=== PATIENT | male | born 1950 | race Caucasian/White ===

== ENCOUNTER → 2016-06-04 | Outpatient (REF) | payer OTHER ==
[2016-06-04 13:31] LABS: ALBUMIN/GLOBULIN RATIO 1.21 (1.00-1.93); ALKALINE PHOSPHATASE 119 U/L (45-117); ALT/SGPT 26 U/L (12-78); ANION GAP 11 MEQ/L (8-16); AST/SGOT 13 U/L (15-37); BILIRUBIN,TOTAL 0.4 MG/DL (0.2-1.0); BLOOD UREA NITROGEN 11 MG/DL (7-18); CALCIUM LEVEL 9.1 MG/DL (8.8-10.2); CARBON DIOXIDE LEVEL 25 MEQ/L (21-32); CHLORIDE LEVEL 107 MEQ/L (98-107); CHOLESTEROL LEVEL 192 MG/DL (<200); CREATININE FOR GFR 0.96 MG/DL (0.70-1.30); GLOMERULAR FILTRATION RATE > 60.0 (>49); GLUCOSE, FASTING 121 MG/DL (80-110); POTASSIUM SERUM 3.8 MEQ/L (3.5-5.1); SODIUM LEVEL 143 MEQ/L (136-145); TOTAL PROTEIN 7.3 GM/DL (6.4-8.2); TRIGLYCERIDES LEVEL 66 MG/DL (<150)
[2016-06-06 00:06] LABS: %CD3+CD4+CD8+ 2.8 % (Not Estab.); %CD3+CD4+CD8- 38.3 % (Not Estab.); %CD3+CD4-CD8+ 29.4 % (Not Estab.); %CD3+CD4-CD8- 0.6 % (Not Estab.); ABS CD3+CD4+CD8+ 48 /uL (Not Estab.); ABS CD3+CD4+CD8- 651 /uL (Not Estab.); ABS CD3+CD4-CD8+ 500 /uL (Not Estab.); ABS CD3+CD4-CD8- 10 /uL (Not Estab.); Eosinophils 2 % (.); HCT 45.8 % (37.5-51.0); HGB 15.3 g/dL (12.6-17.7); Monocytes 7 % (.); Neutrophils 65 % (.); WBC 6.6 x10E3/uL (3.4-10.8)
== END ==
LOC: M SFHCPLAZ 11:55
PROVIDERS: ATTEND Internal Medicine Infectious Disease
DX: B20 Human immunodeficiency virus [HIV] disease (principal); Z11.3 Encounter for screening for infections with a predominantly sexual mode of transmission; I10 Essential (primary) hypertension; E29.1 Testicular hypofunction; B18.1 Chronic viral hepatitis B without delta-agent; R85.619 Unspecified abnormal cytological findings in specimens from anus

== ENCOUNTER → 2016-08-12 | Outpatient (REF) | payer OTHER ==
[2016-08-12 12:34] LABS: BASO % 0.7 % (0.0-1.0); EOS # 0.2 K/mm3 (0.0-0.50); EOS % 2.1 % (0.0-3.0); LARGE UNSTAINED CELL # 0.3 K/mm3 (0.0-0.4); LARGE UNSTAINED CELL % 3.5 % (0.0-4.0); LYMPH # 1.9 K/mm3 (1.5-4.5); LYMPH % 20.3 % (24.0-44.0); MEAN CORPUSCULAR HEMOGLOBIN 32.4 pg (27.0-33.0); MEAN CORPUSCULAR HGB CONC 33.4 g/dl (32.0-36.5); MONO # 0.4 K/mm3 (0.0-0.8); MONO % 5.7 % (0.0-5.0); NEUTROPHILS # 5.3 K/mm3 (1.8-7.7); NEUTROPHILS % 67.7 % (36.0-66.0); PLATELET COUNT, AUTOMATED 182 k/mm3 (150-450); RED CELL DISTRIBUTION WIDTH 12.4 % (11.5-14.5); WHITE BLOOD COUNT 7.8 K/mm3 (4.0-10.0)
[2016-08-12 12:56] LABS: ANION GAP 8 MEQ/L (8-16); BLOOD UREA NITROGEN 17 MG/DL (7-18); CALCIUM LEVEL 10.1 MG/DL (8.8-10.2); CARBON DIOXIDE LEVEL 30 MEQ/L (21-32); CHLORIDE LEVEL 101 MEQ/L (98-107); CREATININE FOR GFR 0.94 MG/DL (0.70-1.30); GLOMERULAR FILTRATION RATE > 60.0 (>49); GLUCOSE, FASTING 94 MG/DL (80-110); POTASSIUM SERUM 4.7 MEQ/L (3.5-5.1); SODIUM LEVEL 139 MEQ/L (136-145)
[2016-08-15 14:19] LABS: HLA B5701-1 Negative (.)
== END ==
LOC: M SFHCPLAZ 11:01
PROVIDERS: ATTEND Internal Medicine Infectious Disease
DX: R60.0 Localized edema (principal); B20 Human immunodeficiency virus [HIV] disease

== ENCOUNTER → 2017-01-20 | Outpatient (REF) | payer OTHER ==
[2017-01-20 16:29] LABS: BASO % 0.7 % (0.0-1.0); EOS # 0.2 K/mm3 (0.0-0.50); EOS % 2.8 % (0.0-3.0); LARGE UNSTAINED CELL # 0.2 K/mm3 (0.0-0.4); LARGE UNSTAINED CELL % 3.4 % (0.0-4.0); LYMPH # 1.8 K/mm3 (1.5-4.5); LYMPH % 25.1 % (24.0-44.0); MEAN CORPUSCULAR HEMOGLOBIN 32.8 pg (27.0-33.0); MEAN CORPUSCULAR HGB CONC 33.4 g/dl (32.0-36.5); MEAN CORPUSCULAR VOLUME 98.3 fl (80.0-96.0); MONO # 0.4 K/mm3 (0.0-0.8); MONO % 6.7 % (0.0-5.0); NEUTROPHILS # 3.8 K/mm3 (1.8-7.7); NEUTROPHILS % 61.4 % (36.0-66.0); PLATELET COUNT, AUTOMATED 183 k/mm3 (150-450); RED CELL DISTRIBUTION WIDTH 12.8 % (11.5-14.5); WHITE BLOOD COUNT 6.2 K/mm3 (4.0-10.0)
[2017-01-20 16:47] LABS: ALBUMIN 3.9 GM/DL (3.2-5.2); ALBUMIN/GLOBULIN RATIO 1.15 (1.00-1.93); BILIRUBIN,DIRECT 0.1 MG/DL (0.0-0.2); BILIRUBIN,TOTAL 0.5 MG/DL (0.2-1.0); TOTAL PROTEIN 7.3 GM/DL (6.4-8.2)
== END ==
LOC: M SFHCPLAZ 13:04
PROVIDERS: ATTEND Internal Medicine Infectious Disease
DX: R10.11 Right upper quadrant pain (principal)

== ENCOUNTER → 2017-01-22 | Outpatient (CLI) | payer OTHER ==
--- NOTE | 2017-01-23 00:05 | REP ---
Clinical: Right upper quadrant pain. Technique: Real time gamez scale ultrasound examination using curved array transducer. Comparison: 12/05/2015. Findings: Visualized portions of the liver are normal although somewhat limited in evaluation due to interposed bowel gas and technical factors. 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 The pancreas is incompletely evaluated due to interposed bowel gas. The gallbladder is normal and without gallstones, wall thickening, or pericholecystic fluid. Common bile duct is upper limits of normal at 7 mm diameter without evidence for intrahepatic biliary ductal dilatation. Right kidney demonstrates renovascular calcifications and measures 10.6 x 6.6 x 6.5 cm without hydronephrosis or obvious mass lesion. No ascites. Impression: Chronic findings as described above. Somewhat limited evaluation due to technical factors. Signed by Keith Strong MD 01/22/2017 11:56 P
== END ==
LOC: M RAD 09:00
PROVIDERS: ATTEND Internal Medicine Infectious Disease
DX: R10.11 Right upper quadrant pain (principal)

== ENCOUNTER → 2017-06-02 | Outpatient (REF) | payer OTHER ==
[2017-06-02 16:17] LABS: INR 0.94; PROTHROMBIN TIME 12.6 SECONDS (12.4-14.5)
[2017-06-02 16:36] LABS: ALBUMIN/GLOBULIN RATIO 1.14 (1.00-1.93); ALKALINE PHOSPHATASE 109 U/L (45-117); ALT/SGPT 28 U/L (12-78); ANION GAP 5 MEQ/L (8-16); AST/SGOT 16 U/L (7-37); BILIRUBIN,TOTAL 0.3 MG/DL (0.2-1.0); BLOOD UREA NITROGEN 12 MG/DL (7-18); CALCIUM LEVEL 9.2 MG/DL (8.8-10.2); CARBON DIOXIDE LEVEL 31 MEQ/L (21-32); CHLORIDE LEVEL 105 MEQ/L (98-107); CREATININE FOR GFR 0.89 MG/DL (0.70-1.30); GLOMERULAR FILTRATION RATE > 60.0 (>49); GLUCOSE, FASTING 120 MG/DL (80-110); MAGNESIUM LEVEL 2.4 MG/DL (1.8-2.4); POTASSIUM SERUM 4.1 MEQ/L (3.5-5.1); PSA SCREENING 0.56 NG/ML (< 4.0); SODIUM LEVEL 141 MEQ/L (136-145); TOTAL PROTEIN 7.5 GM/DL (6.4-8.2)
[2017-06-02 16:38] LABS: TOTAL 25(OH) VITAMIN D 40.7 NG/ML (30.0-100.0)
[2017-06-03 07:16] LABS: ALPHA FETOPROTEIN TUMOR QUANT 2.4 NG/ML (<8.1)
[2017-06-05 14:20] LABS: % CD8 Pos Lymph 30.8 % (12.0-35.5); %CD4 Pos Lymphs 43.6 % (30.8-58.5); ABS Basophils 0.1 x10E3/uL (0.0-0.2); ABS Eosinophils 0.2 x10E3/uL (0.0-0.4); ABS Monocytes 0.7 x10E3/uL (0.1-0.9); ABS Neutophils 3.7 x10E3/uL (1.4-7.0); Abs CD4 Helper 872 /uL (359-1519); Abs CD8 Suppres 616 /uL (109-897); CD4/CD8 Ratio 1.42 (0.92-3.72); Eosinophils 3 % (Not Estab.); HCT 47.5 % (37.5-51.0); HGB 15.7 g/dL (13.0-17.7); HIV-1 RNA PCR QUANT 2 LC550285 <20 copies/mL (.); Immature Grans 0 % (Not Estab.); Lyme Disease IgG/IgM Antibodie <0.91 ISR (0.00-0.90); Lyme Disease IgM Ab Quantitati <0.80 index (0.00-0.79); Lymphocytes 30 % (Not Estab.); MCH 31.9 pg (26.6-33.0); MCHC 33.1 g/dL (31.5-35.7); MCV 97 fL (79-97); Monocytes 10 % (Not Estab.); Neutrophils 56 % (Not Estab.); Platelets 197 x10E3/uL (150-379); RBC 4.92 x10E6/uL (4.14-5.80); RDW 13.7 % (12.3-15.4); WBC 6.6 x10E3/uL (3.4-10.8)
== END ==
LOC: M SFHCPLAZ 13:20
DX: B20 Human immunodeficiency virus [HIV] disease (principal); R21 Rash and other nonspecific skin eruption; E29.1 Testicular hypofunction; Z12.5 Encounter for screening for malignant neoplasm of prostate; B18.1 Chronic viral hepatitis B without delta-agent

== ENCOUNTER → 2018-04-13 | Outpatient (REF) | payer OTHER ==
[2018-04-13 15:19] LABS: ESTIMATED AVERAGE GLUCOSE 117 MG/DL (60-110); HEMOGLOBIN A1c 5.7 %
[2018-04-13 15:22] LABS: ANION GAP 7 MEQ/L (8-16); BLOOD UREA NITROGEN 21 MG/DL (7-18); CALCIUM LEVEL 9.1 MG/DL (8.8-10.2); CARBON DIOXIDE LEVEL 28 MEQ/L (21-32); CHLORIDE LEVEL 105 MEQ/L (98-107); CREATININE FOR GFR 0.96 MG/DL (0.70-1.30); GLOMERULAR FILTRATION RATE > 60.0 (>49); GLUCOSE, FASTING 113 MG/DL (70-100); POTASSIUM SERUM 4.3 MEQ/L (3.5-5.1); SODIUM LEVEL 140 MEQ/L (136-145)
[2018-04-17 14:10] LABS: % CD8 Pos Lymph 30.4 % (12.0-35.5); %CD4 Pos Lymphs 44.2 % (30.8-58.5); ABS Basophils 0.1 x10E3/uL (0.0-0.2); ABS Eosinophils 0.2 x10E3/uL (0.0-0.4); ABS Lymphs 2.2 x10E3/uL (0.7-3.1); ABS Monocytes 0.9 x10E3/uL (0.1-0.9); ABS Neutophils 3.7 x10E3/uL (1.4-7.0); Abs CD4 Helper 972 /uL (359-1519); Abs CD8 Suppres 669 /uL (109-897); CD4/CD8 Ratio 1.45 (0.92-3.72); Eosinophils 3 % (Not Estab.); HCT 43.6 % (37.5-51.0); HGB 15.4 g/dL (13.0-17.7); HIV-1 RNA PCR QUANT 2 LC550285 <20 copies/mL (.); Immature Grans 0 % (Not Estab.); Lymphocytes 32 % (Not Estab.); MCH 33.3 pg (26.6-33.0); MCHC 35.3 g/dL (31.5-35.7); MCV 94 fL (79-97); Monocytes 12 % (Not Estab.); Neutrophils 52 % (Not Estab.); Platelets 193 x10E3/uL (150-379); RBC 4.63 x10E6/uL (4.14-5.80); RDW 13.4 % (12.3-15.4)
== END ==
LOC: M SFHCPLAZ 14:20
DX: B20 Human immunodeficiency virus [HIV] disease (principal); R73.9 Hyperglycemia, unspecified
CPT/HCPCS: 83036

== ENCOUNTER → 2018-05-15 | Outpatient (CLI) | payer MEDICARE, OTHER ==
--- NOTE | 2018-05-15 17:31 | REP ---
Clinical: Chronic hepatitis B Technique: Ratliff scale ultrasound using curved array transducer. Findings: The liver and pancreas are normal in contour, size, and echogenicity without focal hepatic or pancreatic lesions identified. The gallbladder is normal without gallstones, wall thickening or pericholecystic fluid. No biliary ductal dilatation is appreciated, and the common bile duct measures 7.0 mm diameter. The right kidney is normal in reniform shape without hydronephrosis and measures 10.8 x 5.7 x 5.7 cm. No ascites. Visualized portions of the abdominal aorta normal. Impression: Normal right upper quadrant abdominal ultrasound. Electronically Signed by Keith Strong MD 05/15/2018 05:22 P
== END ==
LOC: M RAD 12:48
PROVIDERS: ATTEND Internal Medicine Infectious Disease
DX: B18.1 Chronic viral hepatitis B without delta-agent (principal)

== ENCOUNTER → 2018-10-26 | Outpatient (REF) | payer OTHER ==
[2018-10-26 15:28] LABS: APPEARANCE, URINE CLEAR (CLEAR); BACTERIA, URINE AUTO NEGATIVE (NEGATIVE); BILIRUBIN, URINE AUTO NEGATIVE (NEGATIVE); BLOOD, URINE BLOOD NEGATIVE (NEGATIVE); COLOR, URINE YELLOW (YELLOW); GLUCOSE, URINE (UA) AUTO NEGATIVE (NEGATIVE); KETONE, URINE AUTO NEGATIVE (NEGATIVE); LEUKOCYTE ESTERASE, URINE AUTO NEGATIVE (NEGATIVE); NITRITE, URINE AUTO NEGATIVE (NEGATIVE); PROTEIN, URINE AUTO NEGATIVE (NEGATIVE); RBC, URINE AUTO 0 /HPF (0-3); SPECIFIC GRAVITY URINE AUTO 1.013 (1.002-1.035); SQUAMOUS EPITHELIAL CELL UR AU 0 /HPF (0-6); UROBILINOGEN, URINE AUTO 0.2 mg/dL (0.0-2.0); WBC, URINE AUTO 0 /HPF (0-3)
[2018-10-26 15:32] LABS: ALBUMIN 3.7 GM/DL (3.2-5.2); ALT/SGPT 31 U/L (12-78); BILIRUBIN,TOTAL 0.4 MG/DL (0.2-1.0); BLOOD UREA NITROGEN 18 MG/DL (7-18); CALCIUM LEVEL 9.1 MG/DL (8.8-10.2); CARBON DIOXIDE LEVEL 30 MEQ/L (21-32); CHLORIDE LEVEL 107 MEQ/L (98-107); CREATININE FOR GFR 0.95 MG/DL (0.70-1.30); GLOMERULAR FILTRATION RATE > 60.0 (>49); GLUCOSE, FASTING 104 MG/DL (70-100); POTASSIUM SERUM 4.2 MEQ/L (3.5-5.1); SODIUM LEVEL 144 MEQ/L (136-145); TOTAL PROTEIN 7.3 GM/DL (6.4-8.2)
[2018-10-26 16:15] LABS: PROTHROMBIN TIME 13.3 SECONDS (12.1-14.4)
[2018-10-29 00:09] LABS: % CD8 Pos Lymph 31.9 % (12.0-35.5); ABS Eosinophils 0.2 x10E3/uL (0.0-0.4); ABS Monocytes 0.7 x10E3/uL (0.1-0.9); ABS Neutophils 3.1 x10E3/uL (1.4-7.0); Abs CD4 Helper 860 /uL (359-1519); Abs CD8 Suppres 638 /uL (109-897); CD4/CD8 Ratio 1.35 (0.92-3.72); Eosinophils 4 % (Not Estab.); HBV HBV DNA not detected IU/mL (.); HCT 43.5 % (37.5-51.0); HGB 14.7 g/dL (13.0-17.7); HIV-1 RNA PCR QUANT 2 LC550285 <20 copies/mL (.); Immature Grans 0 % (Not Estab.); Lymphocytes 33 % (Not Estab.); MCHC 33.8 g/dL (31.5-35.7); MCV 95 fL (79-97); Monocytes 12 % (Not Estab.); Neutrophils 50 % (Not Estab.); Platelets 187 x10E3/uL (150-450); RDW 13.3 % (12.3-15.4)
== END ==
LOC: M SFHCPLAZ 14:36
PROVIDERS: ATTEND Internal Medicine Infectious Disease
DX: B18.1 Chronic viral hepatitis B without delta-agent (principal); B20 Human immunodeficiency virus [HIV] disease; Z12.5 Encounter for screening for malignant neoplasm of prostate
CPT/HCPCS: 80053; 81001; 82105; 85610; 86360; 87517; 87536; G0103

== ENCOUNTER → 2019-02-23 | Outpatient (REF) | payer OTHER ==
[2019-02-23 17:11] LABS: BASO # 0.1 10^3/uL (0.0-0.2); BASO % 0.8 % (0.0-1.0); EOS # 0.2 10^3/uL (0.0-0.5); EOS % 2.7 % (0.0-3.0); HEMATOCRIT 49.3 % (42.0-52.0); HEMOGLOBIN 16.4 g/dl (13.5-17.5); LYMPH # 1.7 10^3/uL (1.5-5.0); LYMPH % 23.7 % (24.0-44.0); MEAN CORPUSCULAR HEMOGLOBIN 32.3 pg (27.0-33.0); MEAN CORPUSCULAR HGB CONC 33.3 g/dl (32.0-36.5); MEAN CORPUSCULAR VOLUME 97.2 fl (80.0-96.0); MONO # 0.7 10^3/uL (0.0-0.8); MONO % 8.8 % (0.0-5.0); NEUTROPHILS # 4.7 10^3/uL (1.5-8.5); NEUTROPHILS % 63.5 % (36.0-66.0); PLATELET COUNT, AUTOMATED 199 10^3/uL (150-450); RED BLOOD COUNT 5.07 10^6/uL (4.30-6.10); WHITE BLOOD COUNT 7.4 10^3/uL (4.0-10.0)
[2019-02-23 17:41] LABS: ALBUMIN 3.9 GM/DL (3.2-5.2); ALT/SGPT 24 U/L (12-78); BILIRUBIN,TOTAL 0.7 MG/DL (0.2-1.0); BLOOD UREA NITROGEN 11 MG/DL (7-18); CALCIUM LEVEL 9.2 MG/DL (8.8-10.2); CARBON DIOXIDE LEVEL 28 MEQ/L (21-32); CHLORIDE LEVEL 106 MEQ/L (98-107); CREATININE FOR GFR 0.88 MG/DL (0.70-1.30); FREE T4 1.13 NG/DL (0.76-1.46); GLOMERULAR FILTRATION RATE > 60.0 (>49); GLUCOSE, FASTING 89 MG/DL (70-100); POTASSIUM SERUM 3.7 MEQ/L (3.5-5.1); SODIUM LEVEL 141 MEQ/L (136-145); TOTAL PROTEIN 7.7 GM/DL (6.4-8.2)
[2019-02-23 17:43] LABS: FOLATE 14.1 NG/ML; VITAMIN B12 LEVEL 370 PG/ML
== END ==
LOC: M SFHCPLAZ 14:06
PROVIDERS: ATTEND Internal Medicine Infectious Disease
DX: R42 Dizziness and giddiness (principal); R51 Headache; R25.1 Tremor, unspecified; B20 Human immunodeficiency virus [HIV] disease

== ENCOUNTER → 2019-08-17 | Outpatient (REF) | payer OTHER ==
[2019-08-17 14:01] LABS: INR 0.99; PROTHROMBIN TIME 12.8 SECONDS (11.8-14.0)
[2019-08-17 14:20] LABS: ALT/SGPT 28 U/L (12-78); BILIRUBIN,TOTAL 0.7 MG/DL (0.2-1.0); BLOOD UREA NITROGEN 17 MG/DL (7-18); CALCIUM LEVEL 9.3 MG/DL (8.8-10.2); CARBON DIOXIDE LEVEL 30 MEQ/L (21-32); CHLORIDE LEVEL 106 MEQ/L (98-107); CHOLESTEROL LEVEL 183 MG/DL (<200); GLOMERULAR FILTRATION RATE > 60.0 (>49); GLUCOSE, FASTING 88 MG/DL (70-100); HDL CHOLESTEROL 57 MG/DL (>40); LDL CHOLESTEROL 113 MG/DL (<100); NON-HDL-C 126 MG/DL; POTASSIUM SERUM 4.2 MEQ/L (3.5-5.1); SODIUM LEVEL 140 MEQ/L (136-145); TOTAL PROTEIN 7.4 GM/DL (6.4-8.2); TRIGLYCERIDES LEVEL 67 MG/DL (<150)
[2019-08-17 15:21] LABS: APPEARANCE, URINE CLEAR (CLEAR); BACTERIA, URINE AUTO NEGATIVE (NEGATIVE); BILIRUBIN, URINE AUTO NEGATIVE (NEGATIVE); BLOOD, URINE BLOOD NEGATIVE (NEGATIVE); COLOR, URINE YELLOW (YELLOW); GLUCOSE, URINE (UA) AUTO NEGATIVE (NEGATIVE); KETONE, URINE AUTO NEGATIVE (NEGATIVE); LEUKOCYTE ESTERASE, URINE AUTO NEGATIVE (NEGATIVE); MUCUS, URINE SMALL (NEGATIVE); NITRITE, URINE AUTO NEGATIVE (NEGATIVE); PROTEIN, URINE AUTO NEGATIVE (NEGATIVE); RBC, URINE AUTO 0 /HPF (0-3); SPECIFIC GRAVITY URINE AUTO 1.015 (1.002-1.035); SQUAMOUS EPITHELIAL CELL UR AU 0 /HPF (0-6); UROBILINOGEN, URINE AUTO 0.2 mg/dL (0.0-2.0); WBC, URINE AUTO 0 /HPF (0-3)
[2019-08-17 15:25] LABS: HEMOGLOBIN A1c 5.9 %
== END ==
LOC: M SFHCPLAZ 13:19
PROVIDERS: ATTEND Internal Medicine Infectious Disease
DX: B20 Human immunodeficiency virus [HIV] disease (principal); B18.1 Chronic viral hepatitis B without delta-agent; I10 Essential (primary) hypertension; R73.02 Impaired glucose tolerance (oral)

== ENCOUNTER → 2019-12-13 | Outpatient (REF) | payer MEDICARE, BC | LOC: M SFHCWAGY 18:22 | PROVIDERS: ATTEND Internal Medicine Infectious Disease | DX: K62.82 Dysplasia of anus (principal) ==

== ENCOUNTER → 2020-07-31 | Outpatient (CLI) | payer MEDICARE, BC ==
[2020-07-31 15:22] LABS: APPEARANCE, URINE CLEAR (CLEAR); BACTERIA, URINE AUTO NEGATIVE (NEGATIVE); BILIRUBIN, URINE AUTO NEGATIVE (NEGATIVE); BLOOD, URINE BLOOD NEGATIVE (NEGATIVE); COLOR, URINE YELLOW (YELLOW); GLUCOSE, URINE (UA) AUTO NEGATIVE (NEGATIVE); KETONE, URINE AUTO 1+ mg/dL (NEGATIVE); LEUKOCYTE ESTERASE, URINE AUTO NEGATIVE (NEGATIVE); MUCUS, URINE SMALL (NEGATIVE); NITRITE, URINE AUTO NEGATIVE (NEGATIVE); PROTEIN, URINE AUTO NEGATIVE (NEGATIVE); RBC, URINE AUTO 0 /HPF (0-3); SPECIFIC GRAVITY URINE AUTO 1.018 (1.002-1.035); SQUAMOUS EPITHELIAL CELL UR AU 0 /HPF (0-6); UROBILINOGEN, URINE AUTO 0.2 mg/dL (0.0-2.0); WBC, URINE AUTO 1 /HPF (0-3)
[2020-07-31 15:47] LABS: ALBUMIN 4.2 GM/DL (3.2-5.2); ALT/SGPT 40 U/L (12-78); BILIRUBIN,TOTAL 1.2 MG/DL (0.2-1.0); BLOOD UREA NITROGEN 16 MG/DL (7-18); CALCIUM LEVEL 9.5 MG/DL (8.8-10.2); CARBON DIOXIDE LEVEL 28 MEQ/L (21-32); CHLORIDE LEVEL 104 MEQ/L (98-107); CHOLESTEROL LEVEL 206 MG/DL (<200); CHOLESTEROL RISK RATIO 2.942 (<5); CREATININE FOR GFR 0.99 MG/DL (0.70-1.30); GLOMERULAR FILTRATION RATE > 60.0 (>49); GLUCOSE, FASTING 83 MG/DL (70-100); HDL CHOLESTEROL 70 MG/DL (>40); LDL CHOLESTEROL 128 MG/DL (<100); NON-HDL-C 136 MG/DL; POTASSIUM SERUM 4.1 MEQ/L (3.5-5.1); SODIUM LEVEL 137 MEQ/L (136-145); TOTAL PROTEIN 7.9 GM/DL (6.4-8.2); TRIGLYCERIDES LEVEL 38 MG/DL (<150)
== END ==
LOC: M LAB 14:32
PROVIDERS: ATTEND Internal Medicine Infectious Disease
DX: B20 Human immunodeficiency virus [HIV] disease (principal); Z12.5 Encounter for screening for malignant neoplasm of prostate; B18.1 Chronic viral hepatitis B without delta-agent; Z79.899 Other long term (current) drug therapy
CPT/HCPCS: 36415; 80053; 80061; 81001; 82105; 86360; 87517; 87536; G0103

== ENCOUNTER → 2020-08-10 | Outpatient (REF) | payer MEDICARE, BC | LOC: M SFHCPLAZ 14:14 | PROVIDERS: ATTEND Internal Medicine Infectious Disease | DX: Z11.1 Encounter for screening for respiratory tuberculosis (principal) | CPT/HCPCS: 36415; 86480; G0463 ==

== ENCOUNTER → 2020-12-11 | Outpatient (CLI) | payer MEDICARE, BC ==
[~2020-12-11] MED LIST: AMLO1TAB25 PO; BIKT1TAB PO; CALTCHW5 PO; COSA500T PO; PANT20TA6 PO; [UNRECOGNIZED DRUG - CODE] PO; [UNRECOGNIZED DRUG - OTHER] PO
--- NOTE | 2020-12-11 09:53 | REP ---
INDICATION: CIRRHOSIS. COMPARISON: 05/15/2018. TECHNIQUE: Real-time sonographic evaluation of ABDOMEN PERFORMED, WITH DUPLEX DOPPLER EVALUATION OF PORTAL VASCULATURE. FINDINGS: The gallbladder demonstrates no evidence of intraluminal sludge or calculi, wall thickening or pericholecystic fluid. The common bile duct is slightly prominent in size, measuring 8 mm in maximum diameter. The liver and pancreas demonstrates homogeneous echotexture with no gross mass. The pancreas is not optimally visualized due to overlying bowel gas. Spleen is normal in size with no intrinsic abnormality, measuring 8.1 cm in length. There is no evidence of hydronephrosis, cyst, mass, or calculus in either kidney. The right kidney measures 10.9 x 5.4 x 5.4 cm. Left renal dimensions are 11.2 x 5.0 x 5.9 cm. The abdominal aorta is normal in caliber with no aneurysm. No free fluid is seen. The main portal vein measures 18 mm in diameter. The splenic vein and portal veins demonstrate normal direction of flow, with normal flow velocities and waveforms. There is no portal vein thrombosis. Hepatic veins are patent with no thrombus. Patent main hepatic artery demonstrates peak systolic velocity of 101.0 centimeters/second. IMPRESSION: Common bile duct measures 8 mm, minimally prominent and similar to the prior exam. No liver mass identified. Portal vasculature demonstrates normal direction of flow with no thrombosis. No evidence of hepatic vein thrombosis. Somewhat dilated main portal vein suggests portal hypertension. <Electronically signed by Anup Ratliff > 12/11/20 [id number]
== END ==
LOC: M RAD 07:33
PROVIDERS: ATTEND Internal Medicine Gastroenterology
DX: K74.60 Unspecified cirrhosis of liver (principal)

== ENCOUNTER → 2020-12-12 | Outpatient (REF) | payer MEDICARE, BC | LOC: M LAB REF 19:22 | PROVIDERS: ATTEND Dermatology | DX: L72.0 Epidermal cyst (principal); D48.5 Neoplasm of uncertain behavior of skin | CPT/HCPCS: 11402; 12031; 88305; 96574; J7308 ==

== ENCOUNTER → 2020-12-15 | Outpatient (CLI) | payer MEDICARE, BC | LOC: M LABSMTC 10:25 | PROVIDERS: ATTEND Anesthesiology | DX: Z01.812 Encounter for preprocedural laboratory examination (principal); Z20.822 Contact with and (suspected) exposure to COVID-19 ==

== ENCOUNTER 2020-12-19 10:35 | Day surgery (SDC) | payer MEDICARE, BC ==
[~2020-12-19] VITALS: Ht 175.3 cm; Wt 77.1 kg
[~2020-12-19 10:35] MED LIST changes: +LIDOCAINE 2% 100MG/5ML SDV (FOR ANES.) As Ordered ONE; +NS 1,000 ML IV ONE; +propofoL 200 MG/20 ML VIAL As Ordered ONE
[2020-12-19] MEDS ORDERED: ONDANSETRON 4MG/2ML VIAL As Ordered ONE (12:51)
[2020-12-19] MEDS ORDERED: propofoL 500 MG/50 ML VIAL As Ordered ONE (13:15)
--- NOTE | 2020-12-19 13:45 | ROOR ---
Patient Name: Micha Barrera Procedure Date: 12/19/2020 12:49 PM Date of : 1950 Age: 70 Room: [facility] Gender: Male Note Status: Finalized Procedure: Upper GI endoscopy Indications: Cirrhosis with suspected esophageal varices, Suspected esophagitis Providers: Tristian Charles MD Referring MD: Jon SUTTON MD. Requesting Provider: Medicines: Monitored Anesthesia Care Complications: No immediate complications. Procedure: Pre-Anesthesia Assessment: - Prior to the procedure, a History and Physical was performed, and patient medications and allergies were reviewed. The patient is competent. The risks and benefits of the procedure and the sedation options and risks were discussed with the patient. All questions were answered and informed consent was obtained. Patient identification and proposed procedure were verified by the physician, the nurse and the anesthesiologist in the procedure room. Mental Status Examination: alert and oriented. Airway Examination: normal oropharyngeal airway and neck mobility. Respiratory Examination: clear to auscultation. CV Examination: normal. Prophylactic Antibiotics: The patient does not require prophylactic antibiotics. Prior Anticoagulants: The patient has taken no previous anticoagulant or antiplatelet agents. ASA Grade Assessment: III - A patient with severe systemic disease. After reviewing the risks and benefits, the patient was deemed in satisfactory condition to undergo the procedure. The anesthesia plan was to use monitored anesthesia care (MAC). Immediately prior to administration of medications, the patient was re-assessed for adequacy to receive sedatives. The heart rate, respiratory rate, oxygen saturations, blood pressure, adequacy of pulmonary ventilation, and response to care were monitored throughout the procedure. The physical status of the patient was re-assessed after the procedure. The Endoscope was introduced through the mouth, and advanced to the second part of duodenum. The upper GI endoscopy was accomplished without difficulty. The patient tolerated the procedure well. Findings: A medium-sized hiatal hernia was present. LA Grade C (one or more mucosal breaks continuous between tops of 2 or more mucosal folds, less than 75% circumference) esophagitis with no bleeding was found in the distal esophagus. Grade I varices were found in the lower third of the esophagus. Scattered moderate inflammation characterized by erythema, friability and granularity was found in the gastric antrum. Biopsies were taken with a cold forceps for Helicobacter pylori testing. Verification of patient identification for the specimen was done by the physician and nurse using the patient's name, date and medical record number. Estimated blood loss was minimal. The examined duodenum was normal. Impression: - Medium-sized hiatal hernia. - LA Grade C reflux esophagitis. - Grade I esophageal varices. - Gastritis. Biopsied. - Normal examined duodenum. Recommendation: - Patient has a contact number available for emergencies. The signs and symptoms of potential delayed complications were discussed with the patient. Return to normal activities tomorrow. Written discharge instructions were provided to the patient. - High fiber diet and low sodium diet. - Continue present medications. - Recommend acid suppression medication. - Follow an antireflux regimen. - Repeat upper endoscopy in 1 year to check healing, to evaluate the response to therapy and depending on the symptoms and clinical response. - Return to GI clinic in [facility] (address [address], [address], [place] [address]) in 4 -- 6 weeks. Please call GI clinic @ [phone] for apppointment date and time. - Return to primary care physician. Procedure Code(s): --- Professional --- 93863, Esophagogastroduodenoscopy, flexible, transoral; with biopsy, single or multiple Diagnosis Code(s): --- Professional --- K44.9, Diaphragmatic hernia without obstruction or gangrene K21.0, Gastro-esophageal reflux disease with esophagitis K74.60, Unspecified cirrhosis of liver I85.10, Secondary esophageal varices without bleeding K29.70, Gastritis, unspecified, without bleeding CPT copyright 2019 [employer]. All rights reserved. The codes documented in this report are preliminary and upon reconciliation coordinator review may be revised to meet current compliance requirements. Tristian Charles MD Tristian Charles MD 12/19/2020 1:45:33 PM Electronically signed by Tristian Charles MD Number of Addenda: 0 Note Initiated On: 12/19/2020 12:49 PM Estimated Blood Loss: Estimated blood loss was minimal.
--- NOTE | 2020-12-19 13:48 | ROOR ---
Patient Name: Micha Post Procedure Date: 12/19/2020 12:50 PM Date of : 1950 Age: 70 Room: [facility] Gender: Male Note Status: Finalized Procedure: Colonoscopy Indications: Screening for colorectal malignant neoplasm Providers: Tristian Charles MD Referring MD: Jon SUTTON MD. Requesting Provider: Medicines: Monitored Anesthesia Care Complications: No immediate complications. Procedure: Pre-Anesthesia Assessment: - Prior to the procedure, a History and Physical was performed, and patient medications and allergies were reviewed. The patient is competent. The risks and benefits of the procedure and the sedation options and risks were discussed with the patient. All questions were answered and informed consent was obtained. Patient identification and proposed procedure were verified by the physician, the nurse and the anesthesiologist in the procedure room. Mental Status Examination: alert and oriented. Airway Examination: normal oropharyngeal airway and neck mobility. Respiratory Examination: clear to auscultation. CV Examination: normal. Prophylactic Antibiotics: The patient does not require prophylactic antibiotics. Prior Anticoagulants: The patient has taken no previous anticoagulant or antiplatelet agents. ASA Grade Assessment: III - A patient with severe systemic disease. After reviewing the risks and benefits, the patient was deemed in satisfactory condition to undergo the procedure. The anesthesia plan was to use monitored anesthesia care (MAC). Immediately prior to administration of medications, the patient was re-assessed for adequacy to receive sedatives. The heart rate, respiratory rate, oxygen saturations, blood pressure, adequacy of pulmonary ventilation, and response to care were monitored throughout the procedure. The physical status of the patient was re-assessed after the procedure. The Colonoscope was introduced through the anus and advanced to the terminal ileum, with identification of the appendiceal orifice and IC valve. The colonoscopy was performed without difficulty. The patient tolerated the procedure well. The quality of the bowel preparation was good. The terminal ileum, ileocecal valve, appendiceal orifice, and rectum were photographed. Scope insertion time was 2 minutes. Scope withdrawal time was 8 minutes. The total duration of the procedure was 12 minutes. Findings: The perianal and digital rectal examinations were normal. The terminal ileum appeared normal. A 5 mm polyp was found in the ascending colon. The polyp was sessile. The polyp was removed with a cold snare. Resection and retrieval were complete. Verification of patient identification for the specimen was done by the physician and nurse using the patient's name, date and medical record number. Estimated blood loss was minimal. The left colon was moderately tortuous. Advancing the scope required using manual pressure. Non-bleeding external hemorrhoids were found during retroflexion. The hemorrhoids were medium-sized. Impression: - The examined portion of the ileum was normal. - One 5 mm polyp in the ascending colon, removed with a cold snare. Resected and retrieved. - Tortuous colon. - Non-bleeding external hemorrhoids. Recommendation: - Patient has a contact number available for emergencies. The signs and symptoms of potential delayed complications were discussed with the patient. Return to normal activities tomorrow. Written discharge instructions were provided to the patient. - High fiber diet and low sodium diet. - Continue present medications. - Await pathology results. - Repeat colonoscopy in 5 years for surveillance based on pathology results. - Return to GI clinic in [facility] (address [address], [address], [place], [facility]) in 4 -- 6 weeks. Please call GI clinic @ [phone] for apppointment date and time. - Return to primary care physician. Procedure Code(s): --- Professional --- 31732, Colonoscopy, flexible; with removal of tumor(s), polyp(s), or other lesion(s) by snare technique Diagnosis Code(s): --- Professional --- Z12.11, Encounter for screening for malignant neoplasm of colon K64.8, Other hemorrhoids K63.5, Polyp of colon Q43.8, Other specified congenital malformations of intestine CPT copyright 2019 [employer]. All rights reserved. The codes documented in this report are preliminary and upon head automatic sawyer review may be revised to meet current compliance requirements. Tristian Charles MD Tristian Charles MD 12/19/2020 1:48:35 PM Electronically signed by Tristian Charles MD Number of Addenda: 0 Note Initiated On: 12/19/2020 12:50 PM Estimated Blood Loss: Estimated blood loss was minimal.
[2020-12-19 13:50] VITALS: BP 108/77
== END 2020-12-19 14:30 | disposition home or self-care (01) ==
LOC: M OPP 10:35
PROVIDERS: ATTEND Internal Medicine Gastroenterology
DX: Z12.11 Encounter for screening for malignant neoplasm of colon (principal); Q43.8 Other specified congenital malformations of intestine; D12.6 Benign neoplasm of colon, unspecified; K64.8 Other hemorrhoids; K44.9 Diaphragmatic hernia without obstruction or gangrene; K21.00 Gastro-esophageal reflux disease with esophagitis, without bleeding; K74.60 Unspecified cirrhosis of liver; I85.10 Secondary esophageal varices without bleeding; K29.70 Gastritis, unspecified, without bleeding; B18.1 Chronic viral hepatitis B without delta-agent; Z79.899 Other long term (current) drug therapy
CPT/HCPCS: 43239; 45385; 88305; J2405

== ENCOUNTER → 2021-07-05 | Outpatient (CLI) | payer MEDICARE, BC ==
[~2021-07-05] MED LIST changes: -LIDOCAINE 2% 100MG/5ML SDV (FOR ANES.) As Ordered ONE; -NS 1,000 ML IV ONE; -propofoL 200 MG/20 ML VIAL As Ordered ONE
[2021-07-05 14:18] LABS: APPEARANCE, URINE CLEAR (CLEAR); BACTERIA, URINE AUTO NEGATIVE (NEGATIVE); BILIRUBIN, URINE AUTO NEGATIVE (NEGATIVE); BLOOD, URINE BLOOD NEGATIVE (NEGATIVE); COLOR, URINE STRAW (YELLOW); GLUCOSE, URINE (UA) AUTO NEGATIVE (NEGATIVE); KETONE, URINE AUTO NEGATIVE (NEGATIVE); LEUKOCYTE ESTERASE, URINE AUTO NEGATIVE (NEGATIVE); NITRITE, URINE AUTO NEGATIVE (NEGATIVE); PROTEIN, URINE AUTO NEGATIVE (NEGATIVE); RBC, URINE AUTO 0 /HPF (0-3); SPECIFIC GRAVITY URINE AUTO 1.004 (1.002-1.035); SQUAMOUS EPITHELIAL CELL UR AU 0 /HPF (0-6); UROBILINOGEN, URINE AUTO 0.2 mg/dL (0.0-2.0); WBC, URINE AUTO 0 /HPF (0-3)
[2021-07-05 14:19] LABS: ALBUMIN 4.2 GM/DL (3.2-5.2); ALT/SGPT 26 U/L (12-78); BILIRUBIN,TOTAL 0.6 MG/DL (0.2-1.0); BLOOD UREA NITROGEN 13 MG/DL (7-18); CALCIUM LEVEL 9.7 MG/DL (8.8-10.2); CARBON DIOXIDE LEVEL 27 MEQ/L (21-32); CHLORIDE LEVEL 106 MEQ/L (98-107); CREATININE FOR GFR 1.06 MG/DL (0.70-1.30); GLOMERULAR FILTRATION RATE > 60.0 (>49); GLUCOSE, FASTING 95 MG/DL (70-100); POTASSIUM SERUM 3.9 MEQ/L (3.5-5.1); PROSTATIC SPECIFIC AG MONITOR 1.22 NG/ML (< 4.00); SODIUM LEVEL 142 MEQ/L (136-145); TOTAL PROTEIN 7.5 GM/DL (6.4-8.2)
[2021-07-05 15:28] LABS: GC DNA AMPLIFICATION NEGATIVE (NEGATIVE)
[2021-07-07 14:16] LABS: %CD4 Pos Lymphs 35.1 % (30.8-58.5); ABS Basophils 0.1 x10E3/uL (0.0-0.2); ABS Eosinophils 0.1 x10E3/uL (0.0-0.4); ABS Lymphs 1.5 x10E3/uL (0.7-3.1); ABS Monocytes 0.8 x10E3/uL (0.1-0.9); Abs CD4 Helper 527 /uL (359-1519); Abs CD8 Suppres 495 /uL (109-897); CD4/CD8 Ratio 1.06 (0.92-3.72); Eosinophils 2 % (Not Estab.); HBV HBV DNA not detected IU/mL (.); HCT 47.4 % (37.5-51.0); HGB 16.6 g/dL (13.0-17.7); HIV-1 RNA PCR QUANT 2 LC550285 <20 copies/mL (.); Immature Grans 0 % (Not Estab.); Lymphocytes 23 % (Not Estab.); MCV 92 fL (79-97); Monocytes 12 % (Not Estab.); Neutrophils 62 % (Not Estab.); Platelets 192 x10E3/uL (150-450); RBC 5.18 x10E6/uL (4.14-5.80); RDW 12.3 % (11.6-15.4); WBC 6.4 x10E3/uL (3.4-10.8)
[2021-07-07 23:10] LABS: CHLAMYDIA PHARYNGEAL APTIMA Negative (Negative); CHLAMYDIA RECTAL APTIMA Negative (Negative); GC PHARYNGEAL APTIMA Negative (Negative); GC RECTAL APTIMA Negative (Negative)
== END ==
LOC: M PLALAB 10:52
PROVIDERS: ATTEND Internal Medicine Infectious Disease
DX: B20 Human immunodeficiency virus [HIV] disease (principal); B18.1 Chronic viral hepatitis B without delta-agent; Z11.3 Encounter for screening for infections with a predominantly sexual mode of transmission; Z12.5 Encounter for screening for malignant neoplasm of prostate
CPT/HCPCS: 36415; 80053; 81001; 82105; 84153; 86360; 86780; 87491; 87517; 87536; 87591; 87810; 87850; 88108; G0463

== ENCOUNTER → 2021-09-25 | Outpatient (CLI) | payer MEDICARE, BC | LOC: M WHC 12:48 | PROVIDERS: ATTEND Internal Medicine Infectious Disease | DX: R10.11 Right upper quadrant pain (principal) ==

== ENCOUNTER → 2021-09-25 | Emergency (ER) | payer MEDICARE, BC ==
[~2021-09-25] VITALS: Ht 175.3 cm; Wt 81.3 kg
[2021-09-25 01:17] VITALS: BP 137/84
== END | disposition left against medical advice (07) ==
LOC: M ED 01:17
DX: Z53.21 Procedure and treatment not carried out due to patient leaving prior to being seen by health care provider (principal)

== ENCOUNTER → 2021-09-25 | Outpatient (CLI) | payer MEDICARE, BC ==
[2021-09-25 13:28] LABS: BASO # 0.1 10^3/uL (0.0-0.2); BASO % 0.8 % (0.0-1.0); EOS # 0.2 10^3/uL (0.0-0.5); EOS % 2.3 % (0.0-3.0); HEMATOCRIT 50.4 % (42.0-52.0); HEMOGLOBIN 16.3 g/dl (13.5-17.5); LYMPH % 25.5 % (24.0-44.0); MEAN CORPUSCULAR HEMOGLOBIN 32.5 pg (27.0-33.0); MEAN CORPUSCULAR HGB CONC 32.3 g/dl (32.0-36.5); MEAN CORPUSCULAR VOLUME 100.6 fl (80.0-96.0); MONO # 0.8 10^3/uL (0.0-0.8); MONO % 10.3 % (2.0-8.0); NEUTROPHILS # 4.8 10^3/uL (1.5-8.5); NEUTROPHILS % 60.6 % (36.0-66.0); PLATELET COUNT, AUTOMATED 173 10^3/uL (150-450); RED BLOOD COUNT 5.01 10^6/uL (4.30-6.10); WHITE BLOOD COUNT 7.9 10^3/uL (4.0-10.0)
[2021-09-25 13:34] LABS: ALBUMIN 3.9 GM/DL (3.2-5.2); ALT/SGPT 26 U/L (12-78); BILIRUBIN,TOTAL 0.8 MG/DL (0.2-1.0); BLOOD UREA NITROGEN 17 MG/DL (7-18); CALCIUM LEVEL 9.1 MG/DL (8.8-10.2); CARBON DIOXIDE LEVEL 31 MEQ/L (21-32); CHLORIDE LEVEL 107 MEQ/L (98-107); CREATININE FOR GFR 0.97 MG/DL (0.70-1.30); GLOMERULAR FILTRATION RATE > 60.0 (>49); GLUCOSE, FASTING 95 MG/DL (70-100); LIPASE 101 U/L (73-393); POTASSIUM SERUM 4.1 MEQ/L (3.5-5.1); SODIUM LEVEL 141 MEQ/L (136-145); TOTAL PROTEIN 7.5 GM/DL (6.4-8.2)
== END ==
LOC: M PLALAB 09:58
PROVIDERS: ATTEND Internal Medicine Infectious Disease
DX: R10.11 Right upper quadrant pain (principal)

== ENCOUNTER → 2022-04-11 | Outpatient (CLI) | payer MEDICARE, BC ==
[2022-04-11 16:03] LABS: APPEARANCE, URINE MANUAL CLEAR (CLEAR); COLOR, URINE MANUAL YELLOW (YELLOW); SPECIFIC GRAVITY,URINE MANUAL 1.005 (1.002-1.035)
[2022-04-11 16:42] LABS: BILIRUBIN, URINE MANUAL NEGATIVE (NEGATIVE); BLOOD URINE MANUAL NEGATIVE (NEGATIVE); GLUCOSE, URINE (UA) MANUAL NEGATIVE (NEGATIVE); KETONE, URINE MANUAL NEGATIVE (NEGATIVE); LEUKOCYTE ESTERASE, URINE MAN NEGATIVE (NEGATIVE); NITRITE, URINE MANUAL NEGATIVE (NEGATIVE); PROTEIN, URINE MANUAL NEGATIVE (NEGATIVE); UROBILINOGEN, URINE MANUAL NORMAL (NORMAL)
[2022-04-11 16:57] LABS: ALT/SGPT 29 U/L (7.0-40); BILIRUBIN,TOTAL 0.6 MG/DL (0.3-1.2); BLOOD UREA NITROGEN 18 MG/DL (9-23); CALCIUM LEVEL 9.4 MG/DL (8.3-10.6); CARBON DIOXIDE LEVEL 28 MMOL/L (20-31); CHLORIDE LEVEL 104 MMOL/L (98-107); CREATININE FOR GFR 0.86 MG/DL (0.70-1.30); GLOMERULAR FILTRATION RATE > 60.0 (>49); GLUCOSE, FASTING 95 MG/DL (74-106); POTASSIUM SERUM 4.3 MMOL/L (3.5-5.1); SODIUM LEVEL 139 MMOL/L (136-145); TOTAL PROTEIN 7.2 G/DL (5.7-8.2)
[2022-04-11 17:31] LABS: GC DNA AMPLIFICATION NEGATIVE (NEGATIVE)
[2022-04-11 17:31] LABS: GC DNA AMPLIFICATION NEGATIVE (NEGATIVE)
[2022-04-15 12:08] LABS: % CD8 Pos Lymph 30.6 % (12.0-35.5); %CD4 Pos Lymphs 40.9 % (30.8-58.5); ABS Basophils 0.1 x10E3/uL (0.0-0.2); ABS Eosinophils 0.1 x10E3/uL (0.0-0.4); ABS Lymphs 1.7 x10E3/uL (0.7-3.1); ABS Monocytes 0.6 x10E3/uL (0.1-0.9); ABS Neutophils 4.2 x10E3/uL (1.4-7.0); Abs CD4 Helper 695 /uL (359-1519); Abs CD8 Suppres 520 /uL (109-897); CD4/CD8 Ratio 1.34 (0.92-3.72); Eosinophils 2 % (Not Estab.); HCT 47.8 % (37.5-51.0); HGB 16.2 g/dL (13.0-17.7); HIV-1 RNA PCR QUANT 2 LC550285 40 copies/mL (.); HIV-1 RNA PCR QUANT 3 LC550285 1.602 (.); Immature Grans 0 % (Not Estab.); Lymphocytes 26 % (Not Estab.); MCH 32.5 pg (26.6-33.0); MCHC 33.9 g/dL (31.5-35.7); MCV 96 fL (79-97); Monocytes 9 % (Not Estab.); Neutrophils 62 % (Not Estab.); Platelets 191 x10E3/uL (150-450); RBC 4.98 x10E6/uL (4.14-5.80); RDW 12.4 % (11.6-15.4); WBC 6.7 x10E3/uL (3.4-10.8)
== END ==
LOC: M PLALAB 11:11
PROVIDERS: ATTEND Internal Medicine Infectious Disease
DX: Z11.3 Encounter for screening for infections with a predominantly sexual mode of transmission (principal); B20 Human immunodeficiency virus [HIV] disease; B18.1 Chronic viral hepatitis B without delta-agent; Z11.1 Encounter for screening for respiratory tuberculosis

== ENCOUNTER → 2022-08-26 | Outpatient (CLI) | payer MEDICARE, BC ==
[~2022-08-26] MED LIST changes: +SILD100T PO
[2022-08-26 16:38] LABS: GC DNA AMPLIFICATION NEGATIVE (NEGATIVE)
[2022-08-26 16:38] LABS: GC DNA AMPLIFICATION NEGATIVE (NEGATIVE)
[2022-08-26 20:09] LABS: ALKALINE PHOSPHATASE 86 U/L (46-116); ALT/SGPT 24 U/L (7.0-40); AST/SGOT 20 U/L (<34); BILIRUBIN,TOTAL 0.7 MG/DL (0.3-1.2); BLOOD UREA NITROGEN 16 MG/DL (9-23); CALCIUM LEVEL 9.2 MG/DL (8.3-10.6); CARBON DIOXIDE LEVEL 29 MMOL/L (20-31); CHLORIDE LEVEL 106 MMOL/L (98-107); CHOLESTEROL LEVEL 167 MG/DL (<200); CHOLESTEROL RISK RATIO 2.55 (<5); CREATININE FOR GFR 0.83 MG/DL (0.70-1.30); GLOMERULAR FILTRATION RATE > 60.0 (>49); GLUCOSE, FASTING 96 MG/DL (74-106); HDL CHOLESTEROL 65.3 MG/DL (>40); LDL CHOLESTEROL 95.9 MG/DL (<100); NON-HDL-C 101.7 MG/DL; POTASSIUM SERUM 3.9 MMOL/L (3.5-5.1); SODIUM LEVEL 140 MMOL/L (136-145); TOTAL PROTEIN 6.9 G/DL (5.7-8.2); TRIGLYCERIDES LEVEL 29 MG/DL (<150)
[2022-08-28 23:10] LABS: % CD8 Pos Lymph 30.3 % (12.0-35.5); %CD4 Pos Lymphs 41.2 % (30.8-58.5); ABS Basophils 0.1 x10E3/uL (0.0-0.2); ABS Eosinophils 0.1 x10E3/uL (0.0-0.4); ABS Lymphs 1.7 x10E3/uL (0.7-3.1); ABS Monocytes 0.5 x10E3/uL (0.1-0.9); ABS Neutophils 3.4 x10E3/uL (1.4-7.0); Abs CD4 Helper 700 /uL (359-1519); Abs CD8 Suppres 515 /uL (109-897); CD4/CD8 Ratio 1.36 (0.92-3.72); Eosinophils 2 % (Not Estab.); HGB 15.9 g/dL (13.0-17.7); Immature Grans 0 % (Not Estab.); Lymphocytes 29 % (Not Estab.); MCH 32.8 pg (26.6-33.0); MCHC 33.8 g/dL (31.5-35.7); MCV 97 fL (79-97); Monocytes 9 % (Not Estab.); Neutrophils 59 % (Not Estab.); Platelets 172 x10E3/uL (150-450); RBC 4.85 x10E6/uL (4.14-5.80); RDW 12.4 % (11.6-15.4); TESTOSTERONE FREE (DIRECT) 7.5 pg/mL (6.6-18.1); WBC 5.8 x10E3/uL (3.4-10.8)
== END ==
LOC: M WUC 12:13
PROVIDERS: ATTEND Internal Medicine Infectious Disease
DX: B20 Human immunodeficiency virus [HIV] disease (principal); B18.1 Chronic viral hepatitis B without delta-agent; Z11.3 Encounter for screening for infections with a predominantly sexual mode of transmission; Z12.5 Encounter for screening for malignant neoplasm of prostate; Z79.899 Other long term (current) drug therapy

== ENCOUNTER → 2022-08-28 | Outpatient (REF) | payer MEDICARE, BC ==
[2022-08-30 18:07] LABS: HIV-1 RNA PCR QUANT 2 LC550285 <20 copies/mL (.)
== END ==
LOC: M LAB REF 11:49
PROVIDERS: ATTEND Internal Medicine Infectious Disease
DX: B20 Human immunodeficiency virus [HIV] disease (principal); Z12.5 Encounter for screening for malignant neoplasm of prostate; B18.1 Chronic viral hepatitis B without delta-agent

== ENCOUNTER 2022-09-02 09:30 | Day surgery (SDC) | payer MEDICARE, BC ==
[~2022-09-02] VITALS: Ht 175.3 cm; Wt 79.4 kg
[~2022-09-02 09:30] MED LIST changes: +BSS IRRIG/VANCO(10MG)/TOBRA(5MG)/EPINEPH(1:1000-0.5CC)500ML BAG-ORONLY IR ONE; +CEFUROXIME 1MG/0.1ML INTRACAMERAL INJ As Ordered ONE; +LIDOCAINE 1% SDV 5ML VIAL As Ordered ONE; +LIDOCAINE 3.5 % 1ML OPHTH TOPICAL GEL OU ONE; +OFLOXACIN 0.3 % (OCUFLOX) OPTH SOL 5ML OD ONE; +PHENYLEPHRINE 10% OPHTH SOL 5ML OD PRN
[2022-09-02] MEDS ORDERED: MIDAZOLAM INJ 2MG/2ML VIAL As Ordered ONE (10:08)
[2022-09-02] MEDS ORDERED: fentaNYL 100 MCG/2 ML INJECTION As Ordered ONE (10:08)
[2022-09-02] MEDS: CYCLOPENTOLATE 1% OPHTH SOLN 2ML BTL OD SCH ×2 (10:30→14:11)
[2022-09-02] MEDS: TROPICAMIDE 1% OPHTH SOLN 15ML OD SCH ×2 (10:30→14:11)
[2022-09-02] MEDS: PHENYLEPHRINE 2.5% OPHTH SOL 2ML OD SCH ×2 (10:30→14:11)
[2022-09-02] MEDS ORDERED: LIDOCAINE 1% SDV 5ML VIAL As Ordered ONE (10:51)
[2022-09-02 11:30] VITALS: BP 119/75
== END 2022-09-02 11:55 | disposition home or self-care (01) ==
LOC: M SDC 09:30
PROVIDERS: ATTEND Ophthalmology
DX: H25.11 Age-related nuclear cataract, right eye (principal); I10 Essential (primary) hypertension; B20 Human immunodeficiency virus [HIV] disease; Z79.899 Other long term (current) drug therapy
CPT/HCPCS: 66984; J0697; J2250; J3010; V2632

== ENCOUNTER 2022-09-09 09:12 | Day surgery (SDC) | payer MEDICARE, BC ==
[~2022-09-09] VITALS: Ht 175.3 cm; Wt 79.4 kg
[~2022-09-09 09:12] MED LIST changes: +CYCLOPENTOLATE 1% OPHTH SOLN 2ML BTL OS SCH; -OFLOXACIN 0.3 % (OCUFLOX) OPTH SOL 5ML OD ONE; +OFLOXACIN 0.3 % (OCUFLOX) OPTH SOL 5ML OS ONE; -PHENYLEPHRINE 10% OPHTH SOL 5ML OD PRN; +PHENYLEPHRINE 10% OPHTH SOL 5ML OS PRN; +PHENYLEPHRINE 2.5% OPHTH SOL 2ML OS SCH; +TROPICAMIDE 1% OPHTH SOLN 15ML OS SCH
[2022-09-09] MEDS ORDERED: MIDAZOLAM 5MG/ML 1ML VIAL As Ordered ONE (10:28)
[2022-09-09 12:35] VITALS: BP 121/78
== END 2022-09-09 12:38 | disposition home or self-care (01) ==
LOC: M SDC 09:12
PROVIDERS: ATTEND Ophthalmology
DX: H25.12 Age-related nuclear cataract, left eye (principal); I10 Essential (primary) hypertension; K21.9 Gastro-esophageal reflux disease without esophagitis; F32.A Depression, unspecified; B18.1 Chronic viral hepatitis B without delta-agent; B20 Human immunodeficiency virus [HIV] disease; K21.00 Gastro-esophageal reflux disease with esophagitis, without bleeding; E88.1 Lipodystrophy, not elsewhere classified; I44.7 Left bundle-branch block, unspecified; K74.60 Unspecified cirrhosis of liver; K62.82 Dysplasia of anus; J30.2 Other seasonal allergic rhinitis; Z79.899 Other long term (current) drug therapy
CPT/HCPCS: 66984; J0697; J2250; V2632

== ENCOUNTER → 2023-08-28 | Outpatient (CLI) | payer MEDICARE, BC ==
[~2023-08-28] MED LIST changes: -BSS IRRIG/VANCO(10MG)/TOBRA(5MG)/EPINEPH(1:1000-0.5CC)500ML BAG-ORONLY IR ONE; -CEFUROXIME 1MG/0.1ML INTRACAMERAL INJ As Ordered ONE; -CYCLOPENTOLATE 1% OPHTH SOLN 2ML BTL OS SCH; -LIDOCAINE 1% SDV 5ML VIAL As Ordered ONE; -LIDOCAINE 3.5 % 1ML OPHTH TOPICAL GEL OU ONE; -OFLOXACIN 0.3 % (OCUFLOX) OPTH SOL 5ML OS ONE; -PHENYLEPHRINE 10% OPHTH SOL 5ML OS PRN; -PHENYLEPHRINE 2.5% OPHTH SOL 2ML OS SCH; -TROPICAMIDE 1% OPHTH SOLN 15ML OS SCH
[2023-08-28 14:04] LABS: ALBUMIN 4.1 G/DL (3.2-5.2); ALKALINE PHOSPHATASE 84 U/L (46-116); ALT/SGPT 22 U/L (7.0-40); AST/SGOT 15 U/L (<34); BILIRUBIN,TOTAL 0.8 MG/DL (0.3-1.2); BLOOD UREA NITROGEN 15 MG/DL (9-23); CALCIUM LEVEL 9.4 MG/DL (8.3-10.6); CARBON DIOXIDE LEVEL 29 MMOL/L (20-31); CHLORIDE LEVEL 106 MMOL/L (98-107); GLOMERULAR FILTRATION RATE > 60.0 (>42); GLUCOSE, FASTING 100 MG/DL (74-106); POTASSIUM SERUM 4.2 MMOL/L (3.5-5.1); SODIUM LEVEL 142 MMOL/L (136-145)
[2023-08-29 17:14] LABS: % CD8 Pos Lymph 29.2 % (12.0-35.5); %CD4 Pos Lymphs 37.1 % (30.8-58.5); ABS Basophils 0.1 x10E3/uL (0.0-0.2); ABS Eosinophils 0.1 x10E3/uL (0.0-0.4); ABS Lymphs 1.7 x10E3/uL (0.7-3.1); ABS Monocytes 0.6 x10E3/uL (0.1-0.9); ABS Neutophils 3.6 x10E3/uL (1.4-7.0); Abs CD4 Helper 631 /uL (359-1519); Abs CD8 Suppres 496 /uL (109-897); CD4/CD8 Ratio 1.27 (0.92-3.72); Eosinophils 2 % (Not Estab.); HCT 46.7 % (37.5-51.0); HIV-1 RNA PCR QUANT 2 LC550285 <20 copies/mL (.); Immature Grans 0 % (Not Estab.); Lymphocytes 28 % (Not Estab.); MCH 33.2 pg (26.6-33.0); MCHC 34.3 g/dL (31.5-35.7); MCV 97 fL (79-97); Monocytes 9 % (Not Estab.); Neutrophils 60 % (Not Estab.); Platelets 173 x10E3/uL (150-450); RBC 4.82 x10E6/uL (4.14-5.80); RDW 12.1 % (11.6-15.4); WBC 6.1 x10E3/uL (3.4-10.8)
== END ==
LOC: M PLALAB 11:08
PROVIDERS: ATTEND Internal Medicine Infectious Disease
DX: B20 Human immunodeficiency virus [HIV] disease (principal); B18.1 Chronic viral hepatitis B without delta-agent; K62.82 Dysplasia of anus

== ENCOUNTER → 2024-03-02 | Outpatient (CLI) | payer MEDICARE, BC ==
[2024-03-02 14:27] LABS: APPEARANCE, URINE CLEAR (CLEAR); BACTERIA, URINE AUTO NEGATIVE (NEGATIVE); BILIRUBIN, URINE AUTO NEGATIVE (NEGATIVE); BLOOD, URINE BLOOD NEGATIVE (NEGATIVE); COLOR, URINE STRAW (YELLOW); GLUCOSE, URINE (UA) AUTO NEGATIVE (NEGATIVE); KETONE, URINE AUTO NEGATIVE (NEGATIVE); LEUKOCYTE ESTERASE, URINE AUTO NEGATIVE (NEGATIVE); NITRITE, URINE AUTO NEGATIVE (NEGATIVE); PROTEIN, URINE AUTO NEGATIVE (NEGATIVE); RBC, URINE AUTO 0 /HPF (0-3); SPECIFIC GRAVITY URINE AUTO 1.005 (1.002-1.035); SQUAMOUS EPITHELIAL CELL UR AU 0 /HPF (0-6); UROBILINOGEN, URINE AUTO 0.2 mg/dL (0.0-2.0); WBC, URINE AUTO 0 /HPF (0-3)
[2024-03-02 15:12] LABS: GC DNA AMPLIFICATION NEGATIVE (NEGATIVE)
[2024-03-02 15:40] LABS: GC DNA AMPLIFICATION NEGATIVE (NEGATIVE)
[2024-03-02 15:48] LABS: ALBUMIN 3.9 G/DL (3.2-5.2); ALKALINE PHOSPHATASE 97 U/L (46-116); ALT/SGPT 20 U/L (7.0-40); AST/SGOT 17 U/L (<34); BILIRUBIN,TOTAL 0.7 MG/DL (0.3-1.2); BLOOD UREA NITROGEN 16 MG/DL (9-23); CALCIUM LEVEL 9.5 MG/DL (8.3-10.6); CARBON DIOXIDE LEVEL 27 MMOL/L (20-31); CHLORIDE LEVEL 106 MMOL/L (98-107); CREATININE FOR GFR 0.93 MG/DL (0.70-1.30); GLOMERULAR FILTRATION RATE > 60.0 (>42); GLUCOSE, FASTING 95 MG/DL (74-106); POTASSIUM SERUM 4.3 MMOL/L (3.5-5.1); PSA SCREENING 1.72 NG/ML (< 4.00); SODIUM LEVEL 137 MMOL/L (136-145); TOTAL PROTEIN 7.5 G/DL (5.7-8.2)
[2024-03-04 14:19] LABS: % CD4+ LYMPHS 38.5 % (30.8-58.5); ABSOLUTE CD4 HELPER 847 /uL (359-1519); BASOPHILS 1 % (Not Estab.); BASOPHILS ABSOLUTE 0.1 x10E3/uL (0.0-0.2); EOSINOPHILS 2 % (Not Estab.); EOSINOPHILS ABSOLUTE 0.1 x10E3/uL (0.0-0.4); HCT 48.2 % (37.5-51.0); HGB 15.8 g/dL (13.0-17.7); LYMPHOCYTES 27 % (Not Estab.); LYMPHOCYTES ABSOLUTE 2.2 x10E3/uL (0.7-3.1); MCHC 32.8 g/dL (31.5-35.7); MCV 98 fL (79-97); MONOCYTES 8 % (Not Estab.); MONOCYTES ABSOLUTE 0.6 x10E3/uL (0.1-0.9); NEUTROPHILS 62 % (Not Estab.); PLT 207 x10E3/uL (150-450); RBC 4.93 x10E6/uL (4.14-5.80); RDW 12.3 % (11.6-15.4)
[2024-03-05 13:32] LABS: HIV-1 RNA PCR QUANT 2 NOT DETECTED copies/mL (NOT DETECTED); HIV-1 RNA PCR QUANT 3 NOT DETECTED (NOT DETECTED)
== END ==
LOC: M PLALAB 11:11
PROVIDERS: ATTEND Internal Medicine Infectious Disease
DX: B20 Human immunodeficiency virus [HIV] disease (principal); Z12.5 Encounter for screening for malignant neoplasm of prostate; K74.60 Unspecified cirrhosis of liver; Z11.3 Encounter for screening for infections with a predominantly sexual mode of transmission; Z72.89 Other problems related to lifestyle
CPT/HCPCS: 36415; 80053; 81001; 82105; 86361; 86780; 87536; 87810; 87850; G0103

== ENCOUNTER → 2024-08-31 | Outpatient (CLI) | payer MEDICARE, BC ==
[2024-08-31 14:38] LABS: CHOLESTEROL RISK RATIO 3.09 (<5); HDL CHOLESTEROL 61.1 MG/DL (>40); LDL CHOLESTEROL 117.3 MG/DL (<100); NON-HDL-C 127.9 MG/DL
== END ==
LOC: M PLALAB 11:35
PROVIDERS: ATTEND Student in an Organized Health Care Education/Training Program
DX: E78.5 Hyperlipidemia, unspecified (principal); K74.60 Unspecified cirrhosis of liver; Z13.220 Encounter for screening for lipoid disorders

== ENCOUNTER → 2024-08-31 | Outpatient (CLI) | payer MEDICARE, BC ==
[2024-08-31 15:13] LABS: GC DNA AMPLIFICATION NEGATIVE (NEGATIVE)
[2024-08-31 15:14] LABS: GC DNA AMPLIFICATION NEGATIVE (NEGATIVE)
[2024-08-31 16:02] LABS: ALKALINE PHOSPHATASE 79 U/L (40-129); ALT/SGPT 21 U/L (7.0-40); AST/SGOT 17 U/L (<34); BILIRUBIN,TOTAL 0.9 MG/DL (0.3-1.2); BLOOD UREA NITROGEN 13 MG/DL (9-23); CALCIUM LEVEL 9.4 MG/DL (8.3-10.6); CARBON DIOXIDE LEVEL 27 MMOL/L (20-31); CHLORIDE LEVEL 106 MMOL/L (98-107); GLOMERULAR FILTRATION RATE > 60.0 (>42); GLUCOSE, FASTING 94 MG/DL (74-106); POTASSIUM SERUM 3.9 MMOL/L (3.5-5.1); SODIUM LEVEL 142 MMOL/L (136-145); TOTAL PROTEIN 7.3 G/DL (5.7-8.2)
== END ==
LOC: M PLALAB 11:32
PROVIDERS: ATTEND Internal Medicine Infectious Disease
DX: B20 Human immunodeficiency virus [HIV] disease (principal); K62.82 Dysplasia of anus; A63.0 Anogenital (venereal) warts; K74.60 Unspecified cirrhosis of liver; Z11.3 Encounter for screening for infections with a predominantly sexual mode of transmission; Z13.21 Encounter for screening for nutritional disorder

== ENCOUNTER → 2025-03-07 | Outpatient (CLI) | payer MEDICARE, BC ==
[2025-03-07 14:33] LABS: ALT/SGPT 23 U/L (7.0-40); AST/SGOT 20 U/L (<34); CALCIUM LEVEL 9.5 MG/DL (8.3-10.6); CARBON DIOXIDE LEVEL 30 MMOL/L (20-31); CHLORIDE LEVEL 103 MMOL/L (98-107); CREATININE FOR GFR 0.91 MG/DL (0.70-1.30); GLOMERULAR FILTRATION RATE 89.6 (>42); POTASSIUM SERUM 4.3 MMOL/L (3.5-5.1); SODIUM LEVEL 143 MMOL/L (136-145)
[2025-03-07 14:36] LABS: PSA SCREENING 1.28 NG/ML (< 4.00)
[2025-03-07 17:02] LABS: GC DNA AMPLIFICATION NEGATIVE (NEGATIVE)
[2025-03-09 17:37] LABS: % CD4 42 % (30-61); %CD8 26 % (12-42); ABSOLUTE CD4 CELLS 741 cells/uL (490-1740); ABSOLUTE CD8 CELLS 456 cells/uL (180-1170); ABSOLUTE LYMPHOCYTES 1768 cells/uL (850-3900); CD4 CD8 RATIO 1.62 (0.86-5.00)
[2025-03-10 12:53] LABS: HIV-1 RNA PCR QUANT 2 NOT DETECTED copies/mL (NOT DETECTED); HIV-1 RNA PCR QUANT 3 NOT DETECTED (NOT DETECTED)
[2025-03-10 14:18] LABS: LYME TOTAL ANTIBODY CIA 1.63 Index (<=0.90)
[2025-03-10 17:56] LABS: LYME AB IGG BY CIA 2.37 Index (<=0.90); LYME AB IGM BY CIA <= 0.90 Index (<=0.90)
== END ==
LOC: M PLALAB 11:26
PROVIDERS: ATTEND Internal Medicine Infectious Disease
DX: B20 Human immunodeficiency virus [HIV] disease (principal); B18.1 Chronic viral hepatitis B without delta-agent; K74.60 Unspecified cirrhosis of liver; Z12.5 Encounter for screening for malignant neoplasm of prostate; Z11.3 Encounter for screening for infections with a predominantly sexual mode of transmission; Z72.89 Other problems related to lifestyle
CPT/HCPCS: 36415; 80053; 82105; 86360; 86618; 86780; 87517; 87536; 87810; 87850; G0103